=== PATIENT | female | born 1980 | race African-American/Black ===

== ENCOUNTER 2019-01-03 07:15 | Emergency (ER) | payer SELFPAY ==
--- NOTE | 2019-01-03 07:38 | EDPHYS ---
Physician Documentation [facility] Name: Miranda Howell Age: 38 yrs Sex: Female : 1980 Arrival Date: 01/03/2019 Time: 07:17 Bed 6 Private MD: ED Physician Jagjit Jhaveri HPI: 01/03 07:29 This 38 yrs old Black Female presents to ER via Ambulatory with complaints of Facial rn Swelling, Hives. 07:29 The patient presents with itching, localized swelling, swelling of the lips. Onset: The rn symptoms/episode began/occurred 2 day(s) ago. Associated signs and symptoms: Pertinent positives: rash, Pertinent negatives: abdominal pain, Altered mental status chest pain, dysphagia, fever, shortness of breath, Syncope vomiting. Possible causes: The patient has no known obvious cause for the symptoms. Severity of symptoms: At their worst the symptoms were mild in the emergency department the symptoms are unchanged. The patient has experienced a previous episode. Reports swelling of lips and hives, began 1-2 days ago, no fever, no sob or trouble swallowing. + itchy hives. . 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 - Social history:: Smoking status: Patient/guardian denies using tobacco, Patient uses. - Ebola Screening: : Patient negative for fever greater than or equal to 101.5 degrees Fahrenheit, and additional compatible Ebola Virus Disease symptoms Patient denies exposure to infectious person Patient denies travel to an Ebola-affected area in the 21 days before illness onset No symptoms or risks identified at this time. - Family history:: not pertinent. - Hospitalizations: : No recent hospitalization is reported. ROS: 07:29 Constitutional: Negative for fever, chills, and weight loss, Eyes: Negative for injury, rn pain, redness, and discharge, ENT: + swelling to lips Neck: Negative for injury, pain, and swelling, Cardiovascular: Negative for chest pain, palpitations, and edema, Respiratory: Negative for shortness of breath, cough, wheezing, and pleuritic chest pain, Abdomen/GI: Negative for abdominal pain, nausea, vomiting, diarrhea, and constipation, MS/Extremity: Negative for injury and deformity, Skin: + hives Neuro: Negative for headache, weakness, numbness, tingling, and seizure. Exam: 07:29 Constitutional: This is a well developed, well nourished patient who is awake, alert, rn and in no acute distress. Ambulatory to room without difficulty or distress Head/Face: Normocephalic, atraumatic. Eyes: Pupils equal round and reactive to light, extra-ocular motions intact. Lids and lashes normal. Conjunctiva and sclera are non-icteric and not injected. Cornea within normal limits. Periorbital areas with no swelling, redness, or edema. ENT: No intraoral swelling, + upper lip swelling (improved compared to pictures she showed me). Cardiovascular: Regular rate and rhythm. No pulse deficits. Respiratory: No increased work of breathing, no retractions or nasal flaring. Skin: Warm, dry, small urticarial lesions throughout MS/ Extremity: Pulses equal, no cyanosis. Neurovascular intact. Full, normal range of motion. Equal circumference. Neuro: Awake and alert, GCS 15, oriented to person, place, time, and situation. Cranial nerves II-XII grossly intact. Motor strength 5/5 in all extremities. Sensory grossly intact. Cerebellar exam normal. Normal gait. Vital Signs: 07:28 BP 121 / 86; Pulse 82; Resp 16; Temp 98.2; Pulse Ox 100% on R/A; iw MDM: 07:19 Patient medically screened. rn 07:29 Differential diagnosis: urticaria. Data reviewed: vital signs, nurses notes, and as a rn result, I will discharge patient. Counseling: I had a detailed discussion with the patient and/or guardian regarding: the historical points, exam findings, and any diagnostic results supporting the discharge/admit diagnosis, the need for outpatient follow up, to return to the emergency department if symptoms worsen or persist or if there are any questions or concerns that arise at home. Response to treatment: the patient's symptoms have mildly improved after treatment, and as a result, I will discharge patient. Special discussion: I discussed with the patient/guardian in detail that at this point there is no indication for admission to the hospital. It is understood, however, that if the symptoms persist or worsen the patient needs to return immediately for re-evaluation. Administered Medications: 07:45 Drug: SOLU-Medrol 125 mg Route: IM; Site: right gluteus; ss 07:57 Follow up: Response: No adverse reaction; Medication administered at discharge. ss Disposition: 01/03/19 07:37 Discharged to Home. Impression: Urticaria, unspecified, Angioedema, Acute allergic reaction. - Condition is Stable. - Discharge Instructions: Hives, Angioedema. - Prescriptions for Prednisone 20 mg Oral Tablet - take 3 tablet by ORAL route once daily for 5 days; 15 tablet. - Medication Reconciliation Form, Thank You Letter, Antibiotic Education, Prescription Opioid Use form. - Follow up: Private Physician; When: As needed; Reason: Recheck today's complaints, Re-evaluation by your physician. - Problem is new. - Symptoms have improved. Signatures: Alena Pretty RN RN Jagjit Jhaveri MD MD rn Smirch, Shelby, RN RN Corrections: (The following items were deleted from the chart) 07:57 07:37 01/03/2019 07:37 Discharged to Home. Impression: Urticaria, unspecified; ss Angioedema; Acute allergic reaction. Condition is Stable. Forms are Medication Reconciliation Form, Thank You Letter, Antibiotic Education, Prescription Opioid Use. Follow up: Private Physician; When: As needed; Reason: Recheck today's complaints, Re-evaluation by your physician. Problem is new. Symptoms have improved. rn
--- NOTE | 2019-01-03 07:38 | ER ---
Nurse's Notes [facility] Name: Miranda Howell Age: 38 yrs Sex: Female : 1980 Arrival Date: 01/03/2019 Time: 07:17 Bed 6 Private MD: Diagnosis: Urticaria, unspecified;Angioedema;Acute allergic reaction Presentation: 01/03 07:27 Presenting complaint: Patient states: hives X two days, lip swelling last night. iw Transition of care: patient was not received from another setting of care. Onset: The symptoms/episode began/occurred last night. Anaphylaxis evaluation, no signs or symptoms of anaphylaxis were noted. Onset of symptoms was January 03, 2019. Risk Assessment: Do you want to hurt yourself or someone else? Patient reports no desire to harm self or others. Initial Sepsis Screen: Does the patient meet any 2 criteria? No. Patient's initial sepsis screen is negative. Does the patient have a suspected source of infection? No. Patient's initial sepsis screen is negative. Care prior to arrival: None. 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 - Social history:: Smoking status: Patient/guardian denies using tobacco, Patient uses. - Ebola Screening: : Patient negative for fever greater than or equal to 101.5 degrees Fahrenheit, and additional compatible Ebola Virus Disease symptoms Patient denies exposure to infectious person Patient denies travel to an Ebola-affected area in the 21 days before illness onset No symptoms or risks identified at this time. - Family history:: not pertinent. - Hospitalizations: : No recent hospitalization is reported. Screenin:30 Abuse screen: Denies threats or abuse. Denies injuries from another. Nutritional ss screening: No deficits noted. Tuberculosis screening: Never had TB. Fall Risk None identified. Assessment: 07:30 General: Appears in no apparent distress. comfortable, Behavior is cooperative, ss anxious, Denies fever, feeling ill, fatigue, chills. Pain: Denies pain. Neuro: Level of Consciousness is awake, alert, obeys commands, Oriented to person, place, time, situation. Cardiovascular: Capillary refill < 3 seconds is brisk in bilateral fingers. Respiratory: Airway is patent Respiratory effort is even, unlabored, Respiratory pattern is regular, symmetrical, Breath sounds are clear bilaterally. Denies cough, shortness of breath labored breathing. GI: No signs and/or symptoms were reported involving the gastrointestinal system. : No signs and/or symptoms were reported regarding the genitourinary system. EENT: Throat is clear. Derm: Reports rash to bilateral thighs that began yesterday, is itching. Musculoskeletal: mild swelling noted to upper lip. 07:45 Reassessment: discharged delayed due to shot time. Vital Signs: 07:28 BP 121 / 86; Pulse 82; Resp 16; Temp 98.2; Pulse Ox 100% on R/A; iw ED Course: 07:17 Patient arrived in ED. rg4 07:19 Jagjit Jhaveri MD is Attending Physician. rn 07:28 Triage completed. iw 07:28 Arm band placed on. iw 07:30 Joan Stein, BETHANY is Primary Nurse. ss 07:30 Patient has correct armband on for positive identification. Bed in low position. Call ss light in reach. 07:50 No provider procedures requiring assistance completed. Patient did not have IV access ss during this emergency room visit. Administered Medications: 07:45 Drug: SOLU-Medrol 125 mg Route: IM; Site: right gluteus; ss 07:57 Follow up: Response: No adverse reaction; Medication administered at discharge. Outcome: 07:37 Discharge ordered by . rn 07:50 Condition: good ss 07:50 Discharge instructions given to patient, family, Instructed on discharge instructions, follow up and referral plans. medication usage, Demonstrated understanding of instructions, follow-up care, medications. 07:57 Discharged to home ambulatory. ss 07:57 Patient left the ED. ss 09:35 Discharged to pt called to Dept to verify medication usage for new prescription, pt sg educated on prescription usage for at home, pt stated understanding Signatures: Beck Yee RN RN Alena Pretty RN RN Jagjit Jhaveri MD MD rn Smirch, Shelby, RN RN May Curtis rg4
[2019-01-03] MEDS ORDERED: METHYLPREDNISOLONE 125 MG INJ ONE (07:44)
== END 2019-01-03 07:57 | disposition home or self-care (01) ==
LOC: ER 07:15
DX: T78.3XXA Angioneurotic edema, initial encounter (principal)
CPT/HCPCS: 96372; 99283; J2930

== ENCOUNTER 2020-09-21 23:57 | Emergency (ER) | payer SELFPAY ==
[2020-09-22] MEDS ORDERED: DIPHENHYDRAMINE 25 MG TAB/CAP ONE (01:09)
[2020-09-22] MEDS ORDERED: FAMOTIDINE 20 MG TAB ONE ×2 (01:10)
[2020-09-22] MEDS ORDERED: predniSONE 20 MG TAB ONE (01:10)
--- NOTE | 2020-09-22 01:36 | EDPHYS ---
Physician Documentation [facility] Name: Miranda Howell Age: 40 yrs Sex: Female : 1980 Arrival Date: 09/22/2020 Time: 00:01 Bed 14 Private MD: ED Physician Michelet Anderson HPI: 09/22 01:21 This 40 yrs old Black Female presents to ER via Ambulatory with complaints of Allergic mh7 Reaction. 01:22 The patient presents with itching, rash, that is diffuse, swelling of the lips. Onset: mh7 The symptoms/episode began/occurred 5 day(s) ago. Associated signs and symptoms: Pertinent positives: hives, rash, swelling, Pertinent negatives: abdominal pain, Altered mental status chest pain, dysphagia, fever, headache, Light headed nausea, shortness of breath, Syncope vomiting. Possible causes: dust, change in laundry detergent. At home the patient or guardian has treated the symptoms with Benadryl. Severity of symptoms: At their worst the symptoms were moderate 3 day(s) ago, in the emergency department the symptoms have improved mildly. Historical: - Allergies: 00:11 No Known Allergies; ea - Home Meds: 00:11 None [Active]; ea - PMHx: 00:11 None; ea - PSHx: 00:11 None; ea - Immunization history:: Adult Immunizations up to date. - Social history:: Smoking status: unknown. ROS: 01:22 Constitutional: Negative for fever, chills, and weight loss, Eyes: Negative for injury, mh7 pain, redness, and discharge, ENT: Negative for injury, pain, and discharge, Neck: Negative for injury, pain, and swelling, Cardiovascular: Negative for chest pain, palpitations, and edema, Respiratory: Negative for shortness of breath, cough, wheezing, and pleuritic chest pain, Abdomen/GI: Negative for abdominal pain, nausea, vomiting, diarrhea, and constipation, Back: Negative for injury and pain, : Negative for injury, bleeding, discharge, and swelling, MS/Extremity: Negative for injury and deformity, Neuro: Negative for headache, weakness, numbness, tingling, and seizure, Psych: Negative for depression, anxiety, suicide ideation, homicidal ideation, and hallucinations, Allergy/Immunology: Negative for hives, rash, and allergies, Endocrine: Negative for neck swelling, polydipsia, polyuria, polyphagia, and marked weight changes, Hematologic/Lymphatic: Negative for swollen nodes, abnormal bleeding, and unusual bruising. Exam: 01:22 Constitutional: This is a well developed, well nourished patient who is awake, alert, mh7 and in no acute distress. 01:22 Eyes: Pupils equal round and reactive to light, extra-ocular motions intact. Lids and lashes normal. Conjunctiva and sclera are non-icteric and not injected. Cornea within normal limits. Periorbital areas with no swelling, redness, or edema. ENT: Nares patent. No nasal discharge, no septal abnormalities noted. Tympanic membranes are normal and external auditory canals are clear. Oropharynx with no redness, swelling, or masses, exudates, or evidence of obstruction, uvula midline. Mucous membranes moist. Neck: Trachea midline, no thyromegaly or masses palpated, and no cervical lymphadenopathy. Supple, full range of motion without nuchal rigidity, or vertebral point tenderness. No Meningismus. Chest/axilla: Normal chest wall appearance and motion. Nontender with no deformity. No lesions are appreciated. Cardiovascular: Regular rate and rhythm with a normal S1 and S2. No gallops, murmurs, or rubs. Normal PMI, no JVD. No pulse deficits. Respiratory: Lungs have equal breath sounds bilaterally, clear to auscultation and percussion. No rales, rhonchi or wheezes noted. No increased work of breathing, no retractions or nasal flaring. Abdomen/GI: Soft, non-tender, with normal bowel sounds. No distension or tympany. No guarding or rebound. No evidence of tenderness throughout. Back: No spinal tenderness. No costovertebral tenderness. Full range of motion. 01:22 MS/ Extremity: Pulses equal, no cyanosis. Neurovascular intact. Full, normal range of motion. Neuro: Awake and alert, GCS 15, oriented to person, place, time, and situation. Cranial nerves II-XII grossly intact. Motor strength 5/5 in all extremities. Sensory grossly intact. Cerebellar exam normal. Normal gait. Psych: Awake, alert, with orientation to person, place and time. Behavior, mood, and affect are within normal limits. 01:22 Head/face: Noted is swelling, that is mild, of the lower lip. 01:22 Skin: rash a mild rash is noted, rash can be described as urticarial, and is diffusely located. Vital Signs: 00:08 BP 127 / 87; Pulse 73; Resp 18; Temp 98.2; Pulse Ox 100% ; Weight 76.2 kg; Height 5 ft. ea 7 in. (170.18 cm); 00:08 Body Mass Index 26.31 (76.20 kg, 170.18 cm) ea MDM: 01:33 Differential diagnosis: anaphylaxis, angioedema, Hereditary Angioedema non IgE mediated [facility] drug reaction urticaria. Data reviewed: vital signs, nurses notes. Data interpreted: Pulse oximetry: on room air is 100 %. Interpretation: normal. Counseling: I had a detailed discussion with the patient and/or guardian regarding: the historical points, exam findings, and any diagnostic results supporting the discharge/admit diagnosis, the need for outpatient follow up, an allergy/internet specialist, to return to the emergency department if symptoms worsen or persist or if there are any questions or concerns that arise at home. Response to treatment: the patient's symptoms have markedly improved after treatment. 01:35 Patient medically screened. [facility] Administered Medications: 00:54 Drug: predniSONE 60 mg Route: PO; ak2 01:41 Follow up: Response: No adverse reaction em 00:54 Drug: Pepcid (famotidine) 20 mg Route: PO; ak2 01:41 Follow up: Response: No adverse reaction em 00:55 Drug: Benadryl (diphenhydrAMINE) 50 mg Route: PO; ak2 01:41 Follow up: Response: No adverse reaction em Disposition: 09/22/20 01:35 Discharged to Home. Impression: Urticaria, Allergic Reaction. - Condition is Stable. - Discharge Instructions: Hives, [id number], Allergies, [id number]. - Prescriptions for Benadryl 25 mg Oral Capsule - take 1 capsule by ORAL route every 6 hours As needed; 30 tablet. Pepcid 20 mg Oral Tablet - take 1 tablet by ORAL route every 12 hours for 5 days; 10 tablet. Prednisone 20 mg Oral Tablet - take 2 tablet by ORAL route once daily for 5 days; 10 tablet. EpiPen 0.3 mg Injection auto- injector - inject 1 pen by INTRAMUSCULAR route as directed Inject into the outer portion of the thigh, through clothing if necessary. Indicated in the emergency treatment of allergic reactions; 1 Pack. - Medication Reconciliation Form, Thank You Letter, Antibiotic Education, Prescription Opioid Use form. - Follow up: Private Physician; When: 1 - 2 days; Reason: Worsening of condition, Recheck today's complaints, Continuance of care, Re-evaluation by your physician. Follow up: Tamra Smith MD; When: 1 - 2 days; Reason: Worsening of condition, Recheck today's complaints. - Problem is new. - Symptoms have improved. Signatures: Chris Eldridge, RN RN em Rosario Arellano RN RN iMchelet Byrd MD MD 7 Collin Desai2 Corrections: (The following items were deleted from the chart) 01:24 01:21 The patient presents with itching, rash, mh7 7 01:43 01:35 09/22/2020 01:35 Discharged to Home. Impression: Urticaria; Allergic Reaction. em Condition is Stable. Forms are Medication Reconciliation Form, Thank You Letter, Antibiotic Education, Prescription Opioid Use. Follow up: Private Physician; When: 1 - 2 days; Reason: Worsening of condition, Recheck today's complaints, Continuance of care, Re-evaluation by your physician. Follow up: Tamra Smith; When: 1 - 2 days; Reason: Worsening of condition, Recheck today's complaints. Problem is new. Symptoms have improved. mh7
--- NOTE | 2020-09-22 01:36 | ER ---
Nurse's Notes [facility] Name: Miranda Howell Age: 40 yrs Sex: Female : 1980 Arrival Date: 09/22/2020 Time: 00:01 Bed 14 Private MD: Diagnosis: Urticaria;Allergic Reaction Presentation: 09/22 00:08 Chief complaint: Patient states: Reports for the past 4 to 5 days she has been having a ea rash and now she noticed swelling to her face. Denies SOB. Reported she has had a reaction before but was unsure what caused it. Coronavirus screen: At this time, the client does not indicate any symptoms associated with coronavirus-19. Ebola Screen: No symptoms or risks identified at this time. Onset: The symptoms/episode began/occurred 5 day(s) ago. Anaphylaxis evaluation, no signs or symptoms of anaphylaxis were noted. Initial Sepsis Screen: Does the patient meet any 2 criteria? No. Patient's initial sepsis screen is negative. Does the patient have a suspected source of infection? No. Patient's initial sepsis screen is negative. Risk Assessment: Do you want to hurt yourself or someone else? Patient reports no desire to harm self or others. Onset of symptoms was September 22, 2020. 00:08 Method Of Arrival: Ambulatory ea 00:08 Acuity: CLAUDIA 3 ea Triage Assessment: 00:11 General: Appears uncomfortable, Behavior is appropriate for age. Pain: Denies pain. ea Neuro: No deficits noted. Respiratory: No deficits noted. Historical: - Allergies: 00:11 No Known Allergies; ea - Home Meds: 00:11 None [Active]; ea - PMHx: 00:11 None; ea - PSHx: 00:11 None; ea - Immunization history:: Adult Immunizations up to date. - Social history:: Smoking status: unknown. Screenin:11 Abuse screen: Denies threats or abuse. Nutritional screening: No deficits noted. ea Tuberculosis screening: No symptoms or risk factors identified. Fall Risk None identified. Assessment: 00:40 General: Appears in no apparent distress. comfortable, Behavior is calm, cooperative. em Pain: Denies pain. Neuro: Level of Consciousness is awake, alert, obeys commands, Oriented to person, place, time, situation. Cardiovascular: Capillary refill < 3 seconds Patient's skin is warm and dry. Respiratory: Airway is patent Respiratory effort is even, unlabored, Breath sounds are clear bilaterally. Derm: Skin is intact, is healthy with good turgor, Skin is pink, warm \T\ dry. reports rash on arms, legs, face. Musculoskeletal: Capillary refill < 3 seconds, Range of motion: intact in all extremities. Vital Signs: 00:08 BP 127 / 87; Pulse 73; Resp 18; Temp 98.2; Pulse Ox 100% ; Weight 76.2 kg; Height 5 ft. ea 7 in. (170.18 cm); 00:08 Body Mass Index 26.31 (76.20 kg, 170.18 cm) ED Course: 00:01 Patient arrived in ED. am4 00:11 Triage completed. ea 00:12 Collin Desai is Primary Nurse. ak2 00:28 Michelet Anderson MD is Attending Physician. 7 01:34 Tamra Smith MD is Referral Physician. [facility] 01:43 No provider procedures requiring assistance completed. Patient did not have IV access em during this emergency room visit. Administered Medications: 00:54 Drug: predniSONE 60 mg Route: PO; ak2 01:41 Follow up: Response: No adverse reaction em 00:54 Drug: Pepcid (famotidine) 20 mg Route: PO; ak2 01:41 Follow up: Response: No adverse reaction em 00:55 Drug: Benadryl (diphenhydrAMINE) 50 mg Route: PO; ak2 01:41 Follow up: Response: No adverse reaction em Outcome: 01:35 Discharge ordered by . 7 01:42 Discharged to home ambulatory. em 01:42 Condition: stable 01:42 Discharge instructions given to patient, Instructed on discharge instructions, follow up and referral plans. medication usage, Demonstrated understanding of instructions, follow-up care, medications, Prescriptions given X 4. 01:43 Patient left the ED. em Signatures: Chris Eldridge RN RN em Antunez, Elena, RN RN ea Holmes, Maurice, MD MD [facility] Bella Alonso [facility] Collin Desai ak2
[2020-09-22 01:53] VITALS: BP 127/87; TEMP 98.2; O2SAT 100
== END 2020-09-22 01:43 | disposition home or self-care (01) ==
LOC: ER 23:57
DX: L50.0 Allergic urticaria (principal)
CPT/HCPCS: 99283; J7512